=== PATIENT | female | born 1940 | race Caucasian/White ===

== ENCOUNTER 2018-08-12 12:01 | Outpatient (CLI) | payer MEDICARE, OTHER ==
[2018-08-12 18:02] LABS: BASOPHILS # (AUTO) 0.1 10^3/uL (0.0-0.1); BASOPHILS % (AUTO) 1.2 %; EOSINOPHILS # (AUTO) 0.2 10^3/uL (0.0-0.7); EOSINOPHILS % (AUTO) 4.2 %; HGB - HEMOGLOBIN 11.8 g/dL (12.0-16.0); LYMPHOCYTES # (AUTO) 1.2 10^3/uL (1.5-3.5); MEAN CORPUSCULAR HEMOGLOBIN 24.7 pg (27.0-31.0); MEAN CORPUSCULAR HGB CONC 31.4 g/dL (32.0-36.0); MEAN CORPUSCULAR VOLUME 78.5 fL (81.0-99.0); MEAN PLATELET VOLUME 8.9 fL (7.9-10.8); MONOCYTES # (AUTO) 0.4 10^3/uL (0.0-1.0); MONOCYTES % (AUTO) 8.3 %; NEUTROPHILS # (AUTO) 2.9 10^3/uL (1.5-6.6); NEUTROPHILS % (AUTO) 61.3 %; PLT - PLATELET COUNT 250 10^3/uL (130-450); RED CELL DISTRIBUTION WIDTH 15.8 % (12.0-15.0); WHITE BLOOD COUNT 4.8 x10^3/uL (4.8-10.8)
[2018-08-12 18:25] LABS: BILIRUBIN,URINE NEGATIVE (NEGATIVE); GLUCOSE, URINE (UA) NEGATIVE (NEGATIVE); KETONES,URINE (UA) NEGATIVE (NEGATIVE); LEUKOCYTE ESTERASE, URINE TRACE (NEGATIVE); NITRITE,URINE NEGATIVE (NEGATIVE); OCCULT BLOOD,URINE NEGATIVE (NEGATIVE); PH,URINE 5.5 PH (5.0-7.5); PROTEIN,URINE NEGATIVE (NEGATIVE); UROBILINOGEN,URINE 0.2 (NORMAL) E.U./dL (NORMAL)
[2018-08-12 18:49] LABS: CLARITY,URINE CLEAR (CLEAR)
[2018-08-12 18:55] LABS: ALBUMIN 3.8 g/dL (3.2-5.5); ALBUMIN/GLOBULIN RATIO 1.1 (1.0-2.2); BILIRUBIN,TOTAL 0.5 mg/dL (0.2-1.0); CALCIUM 9.3 mg/dL (8.5-10.3); CREATININE 0.9 mg/dL (0.4-1.0); TOTAL PROTEIN 7.2 g/dL (6.7-8.2)
[2018-08-12 19:00] LABS: THYROID STIMULATING HORMONE 1.61 uIU/mL (0.34-5.60)
[2018-08-12 19:04] LABS: FREE T4 (FREE THYROXINE) 0.87 ng/dL (0.58-1.64)
[2018-08-12 19:08] LABS: FERRITIN 39.9 ng/mL (11.0-306.8); TOTAL T3 0.84 ng/mL (0.87-1.78)
[2018-08-12 19:45] LABS: HB2 TOTAL 12.6 g/dL; HEMOGLOBIN A1C 0.49 g/dL; HEMOGLOBIN A1C % 5.7 % (4.6-6.2)
[2018-08-13 09:46] LABS: HOMOCYSTEINE 12.1 umol/L (<10.4)
== END 2018-08-12 12:02 | disposition home or self-care (01) ==
LOC: LAB.F 12:01
PROVIDERS: ATTEND Family Medicine
DX: I12.9 Hypertensive chronic kidney disease with stage 1 through stage 4 chronic kidney disease, or unspecified chronic kidney disease (principal); N18.9 Chronic kidney disease, unspecified; R73.09 Other abnormal glucose; R53.83 Other fatigue; I73.9 Peripheral vascular disease, unspecified
CPT/HCPCS: 36415; 80053; 81003; 82626; 82728; 83036; 83090; 84439; 84443; 84480; 84481; 85025

== ENCOUNTER 2019-01-06 10:55 | Outpatient (CLI) | payer MEDICARE, OTHER ==
--- NOTE | 2019-01-06 14:01 | XRAY Report ---
Reason: BILAT KNEE OA Procedure Date: 01/06/2019 Accession Number: [id number] / [id number] Procedure: XRS - Knee 3 View BILAT CPT Code: FULL RESULT: EXAMS: 1. RIGHT KNEE RADIOGRAPHY 2. LEFT KNEE RADIOGRAPHY EXAM DATE:01/06/2019 11:11 AM. CLINICAL HISTORY:Bilateral knee osteoarthritis. COMPARISON: None. TECHNIQUE: 3 views each. FINDINGS: Right Knee: Bones: Normal. No fractures or bone lesions. Joints: Marginal osteophytosis and joints is narrowing predominantly of the medial weightbearing compartment with degenerative changes along the patella facets. No sizable joint effusion and no subluxation. Soft Tissues: Vascular calcifications are noted. Left Knee: Bones: Normal. No fractures or bone lesions. Joints: Moderate degenerative changes predominantly in the medial weightbearing compartment with marginal osteophytosis, tricompartmental osteoarthrosis. No significant joint effusion. No subluxation. Soft Tissues: Vascular calcifications are noted. 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 [facility]
[2019-01-06 18:38] LABS: BASOPHILS # (AUTO) 0.1 10^3/uL (0.0-0.1); BASOPHILS % (AUTO) 1.1 %; EOSINOPHILS # (AUTO) 0.2 10^3/uL (0.0-0.7); EOSINOPHILS % (AUTO) 3.6 %; HGB - HEMOGLOBIN 12.3 g/dL (12.0-16.0); LYMPHOCYTES % (AUTO) 22.7 %; MEAN CORPUSCULAR HEMOGLOBIN 24.2 pg (27.0-31.0); MEAN CORPUSCULAR HGB CONC 30.3 g/dL (32.0-36.0); MEAN CORPUSCULAR VOLUME 79.9 fL (81.0-99.0); MONOCYTES # (AUTO) 0.5 10^3/uL (0.0-1.0); MONOCYTES % (AUTO) 10.2 %; NEUTROPHILS # (AUTO) 2.7 10^3/uL (1.5-6.6); NEUTROPHILS % (AUTO) 62.2 %; PLT - PLATELET COUNT 269 10^3/uL (130-450); RED BLOOD COUNT 5.08 10^6/uL (4.20-5.40); WHITE BLOOD COUNT 4.4 x10^3/uL (4.8-10.8)
[2019-01-06 19:13] LABS: ALBUMIN 3.9 g/dL (3.2-5.5); ALBUMIN/GLOBULIN RATIO 1.1 (1.0-2.2); BILIRUBIN,TOTAL 0.4 mg/dL (0.2-1.0); CALCIUM 9.4 mg/dL (8.5-10.3); CREATININE 0.7 mg/dL (0.4-1.0); CRP HIGH SENSITIVITY 1.9 mg/L; TOTAL PROTEIN 7.4 g/dL (6.7-8.2)
[2019-01-06 19:20] LABS: THYROID STIMULATING HORMONE 2.28 uIU/mL (0.34-5.60)
[2019-01-06 19:24] LABS: FREE T4 (FREE THYROXINE) 0.91 ng/dL (0.58-1.64)
[2019-01-06 19:28] LABS: FERRITIN 39.5 ng/mL (11.0-306.8); TOTAL T3 1.01 ng/mL (0.87-1.78)
[2019-01-06 20:13] LABS: HEMOGLOBIN A1C 0.54 g/dL
[2019-01-12 13:06] LABS: T3 REVERSE 22 ng/dL (8-25)
== END 2019-01-06 10:56 | disposition home or self-care (01) ==
LOC: DI.S 10:55
PROVIDERS: ATTEND Family Medicine
DX: M17.0 Bilateral primary osteoarthritis of knee (principal); I10 Essential (primary) hypertension; R73.02 Impaired glucose tolerance (oral); R53.83 Other fatigue; D64.9 Anemia, unspecified; E55.9 Vitamin D deficiency, unspecified; N18.9 Chronic kidney disease, unspecified
CPT/HCPCS: 36415; 80053; 82306; 82626; 82728; 83036; 84439; 84443; 84480; 84481; 84482; 85025; 85651; 86141

== ENCOUNTER 2020-08-13 15:37 | Outpatient (CLI) | payer MEDICARE, OTHER ==
[2020-08-13 19:59] LABS: BASOPHILS # (AUTO) 0.1 10^3/uL (0.0-0.1); BASOPHILS % (AUTO) 1.3 %; EOSINOPHILS # (AUTO) 0.1 10^3/uL (0.0-0.7); EOSINOPHILS % (AUTO) 2.3 %; HCT - HEMATOCRIT 38.4 % (37.0-47.0); HGB - HEMOGLOBIN 11.7 g/dL (12.0-16.0); LYMPHOCYTES # (AUTO) 1.4 10^3/uL (1.5-3.5); LYMPHOCYTES % (AUTO) 24.3 %; MEAN CORPUSCULAR HEMOGLOBIN 24.6 pg (27.0-31.0); MEAN CORPUSCULAR HGB CONC 30.5 g/dL (32.0-36.0); MEAN CORPUSCULAR VOLUME 80.7 fL (81.0-99.0); MEAN PLATELET VOLUME 11.2 fL (7.9-10.8); MONOCYTES # (AUTO) 0.5 10^3/uL (0.0-1.0); MONOCYTES % (AUTO) 8.3 %; NEUTROPHILS # (AUTO) 3.5 10^3/uL (1.5-6.6); NEUTROPHILS % (AUTO) 63.6 %; PLT - PLATELET COUNT 302 10^3/uL (130-450); RED BLOOD COUNT 4.76 10^6/uL (4.20-5.40); RED CELL DISTRIBUTION WIDTH 15.8 % (12.0-15.0); WHITE BLOOD COUNT 5.6 x10^3/uL (4.8-10.8)
[2020-08-13 20:10] LABS: ALBUMIN 4.1 g/dL (3.2-5.5); ALBUMIN/GLOBULIN RATIO 1.2 (1.0-2.2); BILIRUBIN,TOTAL 0.8 mg/dL (0.2-1.0); CALCIUM 9.3 mg/dL (8.5-10.3); CREATININE 0.9 mg/dL (0.4-1.0); CRP HIGH SENSITIVITY 1.8 mg/L; POTASSIUM 3.8 mmol/L (3.5-5.0); TOTAL PROTEIN 7.4 g/dL (6.7-8.2)
[2020-08-13 20:24] LABS: ESTIMATED AVERAGE GLUCOSE 123 mg/dL (70-100); HEMOGLOBIN A1c% 5.9 % (4.27-6.07)
[2020-08-13 20:28] LABS: FREE T3 2.96 pg/mL (2.5-3.9)
[2020-08-13 20:29] LABS: THYROID STIMULATING HORMONE 2.6 uIU/mL (0.34-5.60)
[2020-08-13 20:30] LABS: FREE T4 (FREE THYROXINE) 0.87 ng/dL (0.58-1.64)
[2020-08-13 20:34] LABS: FERRITIN 59.4 ng/mL (11.0-306.8)
[2020-08-17 13:17] LABS: HOMOCYSTEINE 11.3 umol/L (<10.4)
== END 2020-08-13 15:38 | disposition home or self-care (01) ==
LOC: LAB.S 15:37
PROVIDERS: ATTEND Family Medicine
DX: I12.9 Hypertensive chronic kidney disease with stage 1 through stage 4 chronic kidney disease, or unspecified chronic kidney disease (principal); N18.9 Chronic kidney disease, unspecified; R73.09 Other abnormal glucose; I63.9 Cerebral infarction, unspecified; R53.83 Other fatigue; E55.9 Vitamin D deficiency, unspecified; D64.9 Anemia, unspecified; E78.5 Hyperlipidemia, unspecified
CPT/HCPCS: 36415; 80053; 82306; 82626; 82728; 83036; 83090; 84439; 84443; 84480; 84481; 85025; 86141

== ENCOUNTER 2020-12-06 13:13 | Outpatient (CLI) | payer MEDICARE, OTHER | END 2020-12-06 13:14 | disposition home or self-care (01) | LOC: LAB.S 13:13 | PROVIDERS: ATTEND Family Medicine | DX: I10 Essential (primary) hypertension (principal); R73.09 Other abnormal glucose; E03.9 Hypothyroidism, unspecified; I63.9 Cerebral infarction, unspecified; R53.83 Other fatigue; D64.9 Anemia, unspecified; Z53.9 Procedure and treatment not carried out, unspecified reason | CPT/HCPCS: 36415; 80053; 82626; 82728; 83036; 84439; 84443; 84481; 85025 ==

== ENCOUNTER 2021-02-28 10:16 | Outpatient (CLI) | payer MEDICARE, OTHER | END 2021-02-28 10:17 | disposition short-term general hospital (02) | LOC: EMS 10:16 | DX: L89.309 Pressure ulcer of unspecified buttock, unspecified stage (principal); U07.1 COVID-19 | CPT/HCPCS: A0425; A0429 ==

== ENCOUNTER 2021-03-09 07:55 | Outpatient (CLI) | payer MEDICARE, OTHER | END 2021-03-09 23:59 | disposition EMS.NT | LOC: EMS 07:55 | DX: I46.9 Cardiac arrest, cause unspecified (principal); Z66 Do not resuscitate ==